=== PATIENT | female | born 1940 | race Caucasian/White ===

== ENCOUNTER 2017-07-22 21:46 | Emergency (ER) | payer MEDICARE ==
[~2017-07-22] VITALS: Ht 157.5 cm; Wt 61.2 kg
[~2017-07-22 21:46] MED LIST: CRESTOR20 MG PO; CYMBALTA60 MG PO; DIAZEPAM10 MG PO; PANTOPRAZOLE SO40 MG PO; SYNTHROID50 MCG PO; ULTRAM50 MG PO
--- OUTSIDE RECORDS SUMMARY | 2017-07-22 21:50 | XMS REPORT | Clinical Summary ---
Author Author [facility] Organization [facility] Address Unknown Phone Unavailable Care Team Providers Care Employment Specialist Name Role Phone AgentTomás MD PCP Allergies No Known Allergies Current Medications Prescription Sig. Disp. Refills Start End Date Status Date naproxen sodium (ALEVE) Take 220 mg by mouth Active 220 MG tablet every 12 (twelve) hours as needed for mild pain. rosuvastatin (CRESTOR) 20 Take 20 mg by mouth Active MG tablet daily. cyclobenzaprine Take 5 mg by mouth Active (FLEXERIL) 5 MG tablet nightly. DULoxetine (CYMBALTA) 60 Take 60 mg by mouth Active MG capsule daily. diazepam (VALIUM) 10 MG Take 10 mg by mouth every Active tablet 6 (six) hours as needed for anxiety. acetaminophen (TYLENOL) Take 500 mg by mouth Active 500 MG tablet every 6 (six) hours as needed for mild pain. calcium carbonate Take 600 mg by mouth 2 Active (OS-NAEL) 600 mg (1,500 (two) times a day with mg) tablet meals. pantoprazole (PROTONIX) Take 40 mg by mouth Active 40 MG EC tablet daily. levothyroxine (SYNTHROID, Take 50 mcg by mouth Active LEVOTHROID) 50 MCG tablet every morning. traMADol (ULTRAM) 50 mg Take 50 mg by mouth every Active tablet 6 (six) hours as needed for moderate pain. buPROPion SR (WELLBUTRIN Take 150 mg by mouth 2 Active SR) 150 MG 12 hr tablet (two) times a day. 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 Anxiety and depression 04/29/2016 Acquired hypothyroidism 04/29/2016 Encounters Date Type Specialty Care Team Description 08/18/2016 Telephone Neurology Mitch Dove MD 07/29/2016 Office Visit Neurology Gefof Buck MD Cognitive disorder (Primary Dx); Idiopathic peripheral neuropathy; Gait disorder; Anxiety and depression 07/24/2016 Telephone Neurology Sowmya Becker MA after 07/21/2016 Family History Medical History Relation Name Comments Parkinsonism Mother Relation Name Status Comments Mother Social History Tobacco Use Types Packs/Day Years Used Date Current Every Day Smoker Cigarettes 40 Smokeless Tobacco: Never Used Comments: 4 cigarrettes a day Alcohol Use Drinks/Week oz/Week Comments Yes occasional Sex Assigned at Date Recorded Not on file Last Filed Vital Signs Not on file Plan of Treatment Health Maintenance Due Date Last Done Comments MAMMOGRAM 1992 ZOSTER VACCINE 2002 PNEUMOCOCCAL 2007 POLYSACCHARIDE VACCINE AGE 65 AND OVER PNEUMOCOCCAL-13 2007 INFLUENZA VACCINE 12/30/2016 Results Not on fileafter 07/21/2016 Insurance Payer Benefit Subscriber ID Type Phone Address Plan / Group AETNA AETNA xxxxxxxxxx HMO HMO,POS,EP O, MC/EC MEDICARE MEDICARE xxxxxxxxxx Medicare [place], [place] PART A AND B
--- NOTE | 2017-07-22 22:54 | Diagnostic Imaging Report ---
HIPS BILAT TWO VWS(+/- PELVIS) HISTORY: Pain COMPARISON: None FINDINGS: Bones: No displaced fracture. Osseous alignment is within normal limits. Joints: Degenerative changes noted at the lower lumbar spine and symphysis pubis. Soft tissues: The soft tissues appear unremarkable for surgical clips at the lower pelvis just above the symphysis pubis. Vascular calcifications are present. IMPRESSION: No acute radiographic abnormality. Signed by: Dr. Latrell Srivastava M.D. on 07/22/2017 10:51 PM
--- NOTE | 2017-07-22 23:10 | Diagnostic Imaging Report ---
EXAMINATION: Head CT without contrast. HISTORY:Status post fall. COMPARISON:CT brain from 07/31/2016. TECHNIQUE: Multidetector axial images were obtained from the foramen magnum to the vertex without contrast. The images were reconstructed using brain and bone algorithms. Thin section brain images were reformatted into coronal and sagittal planes. Intravenous contrast: None IMAGE QUALITY: Acceptable. FINDINGS: Skull/scalp: No abnormality. Parenchyma: Unchanged old vascular insult in right striato-capsular region, anterior limb of left internal capsule and old lacunar infarct in left putamen. Nonspecific bilateral frontoparietal white matter hypodensities are likely related to small vessel ischemic changes. No acute hemorrhage, mass or acute major vascular territorial infarct. Arteries: Atherosclerotic calcification in bilateral carotid siphon and V4 segment of the vertebral arteries. Dural sinuses: No abnormal density suggestive of thrombosis. Ventricles: Moderate compensated dilatation due to volume loss. No hydrocephalus. Extra-axial spaces: No abnormal density. Brain volume: Advanced generalized cerebral volume loss. Craniocervical junction: No mass, Chiari malformation, or basilar invagination. Sella: No mass. Paranasal/mastoid sinuses: Imaged portions unremarkable. IMPRESSION: 1. No acute posttraumatic intracranial abnormality. 2. No change since CT head from 07/31/2016. Chronic findings: 1. 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 2. Mild supratentorial white matter microvascular ischemic changes. 3. Generalized age-related cerebral volume loss. Signed by: Dr. Christine Osei M.D. on 07/22/2017 11:07 PM
--- NOTE | 2017-07-22 23:35 | Diagnostic Imaging Report ---
History: Status post fall. Comparison studies: CT cervical spine from 07/31/2016. Technique: Axial images were obtained through the cervical region.. Coronal and sagittal images reconstructed from the axial data.. Intravenous contrast: None Findings: Fractures: None. Soft tissue injuries: None. Atlantoaxial articulation: Intact. Alignment: Reversal of normal cervical lordosis is either positional or due to muscle spasm. No scoliosis. Cervicomedullary junction: No abnormalities. The foramen magnum is patent. Soft tissues: No abnormalities. Vertebrae: Expected postoperative changes from prior anterior cervical spine fusion from level C3-C7. Suboptimal evaluation at this level due to metallic streak artifacts. The metallic hardware and screws are intact. Unchanged asymmetric increase in distance between the anterior margin of C5 vertebral body and the fixation plate that remains 5.4 mm in maximum anteroposterior dimension may represent hardware loosening in appropriate clinical setting. Unchanged intervertebral fixation device with multilevel partial osseous fusion, with decrease in osseous fusion at level C4-C5 with 4 mm, grade 1 anterolisthesis. No fractures, infection or neoplasm. Degenerative changes: C2-C3: Posterior disc osteophyte complex without significant canal stenosis. C4-C5: Bilateral mild foraminal stenosis due to facet and uncovertebral arthrosis. C5-C6: Mild right and moderate left foraminal stenosis due to facet arthrosis. C6-C7: Bilateral mild foraminal stenosis due to uncovertebral arthrosis IMPRESSION: 1. No acute cervical spine abnormalities.Reversal of normal cervical lordosis may be positional or due to muscle spasm. 2. Ligament, spinal cord and or vascular abnormalities cannot be excluded on the basis of this examination. 3. Expected postoperative changes from prior anterior cervical spine fusion from level C3-C7, with suboptimal evaluation at this level due to metallic streak artifacts. 4. Unchanged grade 1 anterolisthesis at C4-C5 and asymmetric increase in distance between the anterior margin of C5 and metallic fixation plate which may represent hardware loosening or failure in appropriate clinical setting. Signed by: Dr. Christine Osei M.D. on 07/22/2017 11:31 PM
--- NOTE | 2017-07-23 00:02 | Diagnostic Imaging Report ---
SHOULDER RIGHT COMPLETE HISTORY: Pain status post fall COMPARISON: None FINDINGS: Bones: No displaced fracture. Patient is status post cervical spine anterior fusion Osseous alignment is within normal limits. Joints: Degenerative changes of the right AC joint.. Narrowing of the acromiohumeral space suggestive of rotator cuff tear. Soft tissues: The soft tissues appear unremarkable. IMPRESSION: No acute radiographic abnormality. Chronic changes as above Signed by: Dr. Latrell Srviastava M.D. on 07/22/2017 11:59 PM
== END 2017-07-23 00:07 | disposition home or self-care (01) ==
LOC: ER 21:46
DX: S00.03XA Contusion of scalp, initial encounter (principal); W17.89XA Other fall from one level to another, initial encounter; Y92.008 Other place in unspecified non-institutional (private) residence as the place of occurrence of the external cause
CPT/HCPCS: 70450; 72125; 73521; 99283

== ENCOUNTER 2017-11-10 16:07 | Emergency (ER) | payer MEDICARE, OTHER ==
[~2017-11-10] VITALS: Ht 157.5 cm; Wt 61.2 kg
--- OUTSIDE RECORDS SUMMARY | 2017-11-10 16:10 | XMS REPORT ---
Author Author [facility] Address Unknown Phone Unavailable Care Team Providers Care Research Administrator Name Role Phone SUZETTE WEI Unavailable Unavailable Problems This patient has no known problems. Allergies, Adverse Reactions, Alerts This patient has no known allergies or adverse reactions. Medications This patient has no known medications. Results Test Description Test Time Test Comments Text Results Atomic Results Result Comments CT CERVICAL SPINE WO [place] [address] Patient Name: RONY KAUR MR #: [id number] : 1940 Age/Sex: 77/F Req #: [id number] [facility] Physician: Ordered by: SUZETTE WEI MD Report #: [id number] Location: ER Room/Bed: Procedure: [id number] CT/CT CERVICAL SPINE WO Exam Date: 07/22/17 Exam Time: 2226 REPORT STATUS: Signed History: Status post fall. Comparison studies: CT cervical spine from 07/31/2016. Technique: Axial images were obtained through the cervical region.. Coronal and sagittal images reconstructed from the axial data.. Intravenous contrast: None Findings: Fractures: None. Soft tissue injuries: None. Atlantoaxial articulation: Intact. Alignment: Reversal of normal cervical lordosis is either positional or due to muscle spasm. No scoliosis. Cervicomedullary junction: No abnormalities. The foramen magnum is patent. Soft tissues: No abnormalities. Vertebrae: Expected postoperative changes from prior anterior cervical spine fusion from level C3-C7. Suboptimal evaluation at this level due to metallic streak artifacts. The metallic hardware and screws are intact. Unchanged asymmetric increase in distance between the anterior margin of C5 vertebral body and the fixation plate that remains 5.4 mm in maximum anteroposterior dimension may represent hardware loosening in appropriate clinical setting. Unchanged intervertebral fixation device with multilevel partial osseous fusion, with decrease in osseous fusion at level C4-C5 with 4 mm, grade 1 anterolisthesis. No fractures, infection or neoplasm. Degenerative changes: C2-C3: Posterior disc osteophyte complex without significant canal stenosis. C4-C5: Bilateral mild foraminal stenosis due to facet and uncovertebral arthrosis. C5-C6: Mild right and moderate left foraminal stenosis due to facet arthrosis. C6-C7: Bilateral mild foraminal stenosis due to uncovertebral arthrosis IMPRESSION: 1. No acute cervical spine abnormalities.Reversal of normal cervical lordosis may be positional or due to muscle spasm. 2. Ligament , spinal cord and or vascular abnormalities cannot be excluded on the basis of this examination. 3. Expected postoperative changes from prior anterior cervical spine fusion from level C3-C7, with suboptimal evaluation at this level due to metallic streak artifacts. 4. Unchanged grade 1 anterolisthesis at C4-C5 and asymmetric increase in distance between the anterior margin of C5 and metallic fixation plate which may represent hardware loosening or failure in appropriate clinical setting. Signed by: Dr. Christine Osei M.D. on 07/22/2017 11:31 PM Dictated By: CHRISTINE OSEI MD 30 Transcribed By: ADITYA on 07/22/17 2331 COPY TO: SUZETTE WEI MD [facility] BILAT TWO VWS(+/- PELVIS) [place] [address] Patient Name: RONY KAUR MR #: [id number] : 1940 Age/Sex: 77/F Req #: [id number] Physician: Ordered by: SUZETTE WEI MD Report #: [id number] Location: ER Room/Bed: Procedure: [id number] DX/HIPS BILAT TWO VWS(+/- PELVIS) Exam Date: Exam Time: REPORT STATUS: Signed HIPS BILAT TWO VWS(+/ - PELVIS) HISTORY: Pain COMPARISON: None FINDINGS: Bones : No displaced fracture. Osseous alignment is within normal limits. Joints: Degenerative changes noted at the lower lumbar spine and symphysis pubis. Soft tissues: The soft tissues appear unremarkable for surgical clips at the lower pelvis just above the symphysis pubis. Vascular calcifications are present. IMPRESSION: No acute radiographic abnormality. Signed by: Dr. Latrell Srivastava M.D. on 07/22/2017 10:51 PM Dictated By: LATRELL KWON MD 50 Transcribed By: ADITYA on 07/22/172250 COPY TO: SUZETTE WEI MD CT BRAIN [place] [address] Patient Name: RONY KAUR MR #: [id number] : 1940 Age/Sex: 77/F Req # : [id number] [facility] Physician: Ordered by: SUZETTE WEI MD Report #: [id number] Location: ER Room/Bed: Procedure: [id number] CT/CT BRAIN WO Exam Date: 07/22/17 Exam Time: 2226 REPORT STATUS: Signed EXAMINATION: Head CT without contrast. HISTORY:Status post fall. COMPARISON:CT brain from 07/31/2016. TECHNIQUE : Multidetector axial images were obtained from the foramen magnum to the vertex without contrast. The images were reconstructed using brain and bone algorithms. Thin section brain images were reformatted into coronal and sagittal planes. Intravenous contrast: None IMAGE QUALITY: Acceptable. FINDINGS: Skull/scalp: No abnormality. Parenchyma: Unchanged old vascular insult in right striato-capsular region, anterior limb of left internal capsule and old lacunar infarct in left putamen. Nonspecific bilateral frontoparietal white matter hypodensities are likely related to small vessel ischemic changes. No acute hemorrhage, mass or acute major vascular territorial infarct. Arteries: Atherosclerotic calcification in bilateral carotid siphon and V4 segment of the vertebral arteries. Dural sinuses: No abnormal density suggestive of thrombosis. Ventricles: Moderate compensated dilatation due to volume loss. No hydrocephalus. Extra-axial spaces: No abnormal density. Brain volume: Advanced generalized cerebral volume loss. Craniocervical junction: No mass, Chiari malformation, or basilar invagination. Sella: No mass. Paranasal/mastoid sinuses: Imaged portions unremarkable. IMPRESSION: 1. No acute posttraumatic intracranial abnormality. 2. No change since CT head from 07/31/2016. Chronic findings: 1. 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 2. Mild supratentorial white matter microvascular ischemic changes. 3. Generalized age-related cerebral volume loss. Signed by: Dr. Christine Osei M.D. on 07/22/2017 11:07 PM Dictated By: CHRISTINE OSEI MD 06 Transcribed By: ADITYA on 07/22/172306 COPY TO: SUZETTE WEI MD [place] [address] Patient Name: RONY KAUR MR #: [id number] : 1940 Age/Sex: 77/F Req #: [id number] [facility] Physician: Ordered by: SUZETTE WEI MD Report #: [id number] Location: ER Room/Bed: Procedure: [id number] DX/SHOULDER RIGHT COMPLETE Exam Date: 07/22/17 Exam Time: 2234 REPORT STATUS: Signed SHOULDER RIGHT COMPLETE HISTORY: Pain status post fall COMPARISON: None FINDINGS: Bones: No displaced fracture. Patient is status post cervical spine anterior fusion Osseous alignment is within normal limits. Joints: Degenerative changes of the right AC joint.. Narrowing of the acromiohumeral space suggestive of rotator cuff tear. Soft tissues: The soft tissues appear unremarkable. IMPRESSION: No acute radiographic abnormality. Chronic changes as above Signed by: Dr. Latrell Srivastava M.D. on 07/22/2017 11 :59 PM Dictated By: LATRELL KWON MD Transcribed By: ADITYA on 07/22/176 COPY TO: SUZETTE WEI MD
--- OUTSIDE RECORDS SUMMARY | 2017-11-10 16:10 | XMS REPORT | Clinical Summary ---
Author Author [facility] Organization [facility] Address Unknown Phone Unavailable Care Team Providers Care Gore Stitcher Name Role Phone Agent, Tomás LOWE PCP Allergies No Known Allergies Current Medications [...] Anxiety and depression 04/29/2016 Acquired hypothyroidism 04/29/2016 Family History Medical History Relation Name Comments [...] Health Maintenance Due Date Last Done Comments BREAST CANCER SCREENING 1992 COLON CANCER SCREENING 1992 SHINGRIX VACCINE (#1) 1992 ZOSTER VACCINE 2002 PNEUMOCOCCAL 2007 POLYSACCHARIDE VACCINE AGE 65 AND OVER PNEUMOCOCCAL-13 2007 INFLUENZA VACCINE 12/30/2017 Results Not on fileafter 11/09/2016 Insurance Payer Benefit Subscriber ID Type Phone Address Plan / Group AETNA AETNA xxxxxxxxxx HMO HMO,POS,EP O, MC/EC MEDICARE MEDICARE xxxxxxxxxx Medicare [place], [place] PART A AND B
--- OUTSIDE RECORDS SUMMARY | 2017-11-10 16:10 | XMS REPORT | Continuity of Care Document ---
Author Author [facility] Organization [facility] Address [address] [place] [address] Phone Unavailable Care Team Providers Care 1St Pressman Name Role Phone NO, PCP PCP Unavailable Insurance Providers Guarantor Geno Kaur Address [address] [place] [address] Email [email or web address] Payer [facility]na [facility] Care Policy Number [id number] Subscriber's Name RjGeno Sheth Relationship 18 Self / Same As Patient Group Number [id number] Group Name RETIRED Effective Date 12 Payer Medicare A & B Policy Number [id number] Subscriber's Name Jovanna Kaurcatie Sheth Relationship 18 Self / Same As Patient Group Number [id number] Group Name RETIRED Effective Date 09 Advance Directives Directive Response Recorded Date/Time Does the patient have an advance directive? Yes 07/31/16 10:29pm If yes, is advance directive on file with [facility]? No 08/16/14 12:37pm If not on file with [facility] will patient provide a copy? Yes 07/31/16 10:29pm Do you have a Directive to Physician? No 07/22/17 9:44pm Do you have a Medical Power of Nanotechnology Engineering Technologist? No 07/22/17 9:44pm Do you have an out of hospital Do Not Resuscitate Order? No 07/22/17 9:44pm Do you have any special needs we should be aware of? No 07/22/17 9:44pm Do you have a support person here with you today? Yes 07/22/17 9:44pm Did patient receive Notice of Privacy Practices? Yes 07/22/17 9:44pm Did patient receive patient rights and responsibilities? Yes 07/22/17 9:44pm Problems No problem information available. Medications Current Home Medications Medication Dose Units Route Directions Days Qty Instructions Start Date Diazepam 10 Mg Tablet 10 Mg Oral Bedtime Duloxetine Hcl (Cymbalta) 60 Mg Capsule.dr 60 Mg Oral Daily Levothyroxine Sodium (Synthroid) 50 Mcg Tab 50 Mcg Oral Daily Pantoprazole Sodium (Protonix) 40 Mg Tablet. 40 Mg Oral Daily Rosuvastatin Calcium (Crestor) 20 Mg Tablet 20 Mg Oral Bedtime Tramadol Hcl (Ultram) 50 Mg Tablet 50 Mg Oral As Needed Social History Smoking Status Start Date Stop Date Current every day smoker Hospital Discharge Instructions No hospital discharge instruction information available. Plan of Care Discharge Date 07/23/17 12:07am Disposition HOME, SELF-CARE Condition at Discharge Stable Instructions/Education Provided Contusion Fall Prevention Forms Provided Work/School Excuse Prescriptions See Medication Section Additional Instructions/Education FOLLOW UP WITH YOUR DOCTOR USE YOUR WALKER WITH AMBULATION Functional Status No functional status information available. Allergies, Adverse Reactions, Alerts No known allergies. Immunizations No immunization information available. Vital Signs Acute Vital Signs Vital Response Date/Time Height 5 ft 2 in 07/22/2017 9:59pm Weight 135 lb 07/22/2017 9:59pm Body Mass Index 24.7 kg/m^2 07/22/2017 9:59pm Results No relevant diagnostic test, laboratory data and/or discharge summary information available. Procedures Procedure Status Date Provider(s) Computed tomography of brain without radiopaque contrast Active 07/22/17 SUZETTE WEI MD Computed tomography of cervical spine without contrast Active 07/22/17 SUZETTE WEI MD Encounters Encounter Location Arrival/Admit Date Discharge/Depart Date Attending Provider Departed Emergency Room [facility] 07/22/17 9:46pm 12:07am SUZETTE WEI MD Departed Emergency Room [facility] 11/29/16 6:31pm 8:33pm SUZETTE WEI MD
--- NOTE | 2017-11-10 17:28 | Diagnostic Imaging Report ---
PROCEDURE: A single AP view of the chest. COMPARISON: Patients [facility], DX, CHEST 2 VIEWS - [facility], 11/07/2015, 12:14. INDICATIONS: FALL FINDINGS: Lines/tubes: None. Lungs: Lungs are well-inflated. Mild bilateral basal atelectatic changes. Pleura: Questionable small left pleural effusion versus pleural thickening. Stable eventration of the right hemidiaphragm. Heart and mediastinum: Cardiac silhouette is unremarkable. Tortuous thoracic aorta. Pulmonary vasculature is normal. Bones: Stable healed right-sided rib fractures. No acute displaced fracture or dislocation in this limited portable AP view IMPRESSION: 1. No acute, displaced fracture or dislocation in this limited portable AP view. 2. Questionable small left pleural effusion versus pleural thickening. Mild bibasilar atelectatic changes. Helio Azul M.D. Dictated by: Helio Azul M.D. on 11/10/2017 at 17:31 Electronically approved by: Helio Azul M.D. on 11/10/2017 at 17:31
[2017-11-10 18:23] LABS: PARTIAL THROMBOPLASTIN TIME 28.3 seconds (23.8-35.5); PROTHROMBIN TIME 12.4 seconds (11.9-14.5)
[2017-11-10 18:24] LABS: BASOPHILS % 0.1 % (0.0-1.0); EOSINOPHILS # (AUTO) 6.4 (0.0-0.4); EOSINOPHILS % 0.5 % (0.0-6.0); HEMATOCRIT 40.3 % (34.2-44.1); HEMOGLOBIN 13.4 g/dL (12.0-16.0); LYMPHOCYTES % 2.6 % (18.0-39.1); MEAN CORPUSCULAR HEMOGLOBIN 28.8 pg (28-32); MEAN CORPUSCULAR HGB CONC 33.3 g/dL (31-35); MEAN CORPUSCULAR VOLUME 86.7 fL (81-99); MONOCYTES # (AUTO) 6.4 (0.2-0.8); MONOCYTES % 0.5 % (4.4-11.3); NEUTROPHILS # (AUTO) 48.4 (2.1-6.9); NEUTROPHILS % 3.4 % (38.7-80.0); PLATELET COUNT 179 x10e3/uL (140-360); RED BLOOD COUNT 4.65 x10e6/uL (3.6-5.1); RED CELL DISTRIBUTION WIDTH 14.4 % (11.7-14.4)
[2017-11-10 18:25] LABS: BASOPHILS # (AUTO) 0.9 (0.0-0.1)
[2017-11-10 18:30] LABS: BILIRUBIN,URINE NEGATIVE (NEGATIVE); CLARITY,URINE CLEAR (CLEAR); COLOR,URINE YELLOW (YELLOW); KETONES,URINE NEGATIVE (NEGATIVE); LEUKOCYTE ESTERASE ,URINE NEGATIVE (NEGATIVE); NITRITE,URINE NEGATIVE (NEGATIVE); PROTEIN,URINE DIPSTICK NEGATIVE (NEGATIVE); URINE UROBILINOGEN 0.2 mg/dL (0.2 - 1)
[2017-11-10 18:43] LABS: BACTERIA,URINE FEW /HPF
[2017-11-10 18:44] LABS: ANION GAP 12.1 mmol/L (8-16); BLOOD UREA NITROGEN 11 mg/dL (7-26); BUN/CREATININE RATIO 12 (6-25); CALCIUM 9.6 mg/dL (8.4-10.2); CARBON DIOXIDE 29 mmol/L (22-29); CHLORIDE 102 mmol/L (98-107); CREATININE, SERUM 0.94 mg/dL (0.57-1.11); EST GLOMERULAR FILTRATION RATE 58 ML/MIN (60-); GLUCOSE 90 mg/dL (74-118); POTASSIUM 4.1 mmol/L (3.5-5.1); SODIUM 139 mmol/L (136-145)
[2017-11-10 18:45] LABS: ALANINE AMINOTRANSFERASE 26 IU/L (0-55); ALBUMIN 3.8 g/dL (3.5-5.0); ALBUMIN/GLOBULIN RATIO 1.3 (0.8-2.0); ALKALINE PHOSPHATASE 81 IU/L (40-150); CREATINE KINASE 79 IU/L (29-168)
--- NOTE | 2017-11-10 21:01 | Diagnostic Imaging Report ---
History:Fall Comparison studies:None Technique: Axial images were obtained from the skull base to the vertex. Coronal and sagittal images reconstructed from the axial data. Intravenous contrast: None Findings: Scalp/skull: No abnormalities. Extra-axial spaces: No masses. No fluid collections. Brain sulci: Moderately prominent. Ventricles: Moderate compensatory dilatation. No hydrocephalus. Parenchyma: Ill defined confluent old lacunar insult is centered in the right striatocapsular region (lateral putamen and lateral head of the caudate). Hypodensities in the supratentorial white matter are small vessel ischemic changes. No masses, hemorrhage, acute or chronic cortical vascular insults. Sellar/suprasellar region: No abnormalities. Craniocervical junction: Patent foramen magnum. No Chiari one malformation. Incidental findings: Atherosclerotic calcifications in the carotid siphons and distal vertebral arteries. Impression: No acute abnormalities. Chronic findings: Moderate generalized volume loss. Moderate supratentorial white matter small vessel ischemic changes. Focal right striatocapsular lacunar insult. Preliminary report provided by Dr. Gray Signed by: Dr. Jose Perez M.D. on 11/10/2017 8:58 PM
--- NOTE | 2017-11-10 21:11 | Diagnostic Imaging Report ---
History: Fall Comparison studies: None Technique: Axial images were obtained through the cervical region.. Coronal and sagittal images reconstructed from the axial data.. Intravenous contrast: None Findings: Airway: Patent. Fractures: None. Soft tissues: No gross abnormalities. Atlantoaxial articulation: Mildly degenerated. Alignment: Reversal of the usual lordosis is centered at C5-6. 3 mm retrolisthesis of C5 on C6. No scoliosis. Cervicomedullary junction: No abnormalities. The foramen magnum is patent. Vertebrae: Patient status post bilateral laminectomies at C4 and anterior cervical fusion from C3 to C7. The prevertebral plate and paired screws are in place. The intervening disc spaces and the facet joints are partially fused. Empty screw tracts are noted at C7 level superiorly adjacent to the C7 vertebral body screws. No infection or neoplasm. Degenerative changes: Mild spinal canal stenosis at C2-3 due to a central partially calcified disc protrusion. Foraminal stenosis is mild right at C3-4, left at C4-5, moderate left, mild right at C5-6 due to uncovertebral arthrosis. IMPRESSION: 1. No acute abnormalities. 2. Cannot adequately evaluate for ligament, spinal cord and or vascular abnormalities on this exam. 3. Patient status post anterior cervical fusion from C3 to C6 and decompressive laminectomies at C4. 4. Degenerative changes as described. 5. Preliminary report provided by Dr. Gray on 11/10/2017 at 1810 hours. Signed by: Dr. Jose Perez M.D. on 11/10/2017 9:08 PM
[2017-11-10 22:16] VITALS: BP 122/76
== END 2017-11-10 22:23 | disposition home or self-care (01) ==
LOC: ER 16:07
DX: S16.1XXA Strain of muscle, fascia and tendon at neck level, initial encounter (principal); M54.2 Cervicalgia; R51 Headache; W01.0XXA Fall on same level from slipping, tripping and stumbling without subsequent striking against object, initial encounter; Y92.009 Unspecified place in unspecified non-institutional (private) residence as the place of occurrence of the external cause; Z91.81 History of falling; I10 Essential (primary) hypertension
CPT/HCPCS: 36415; 70450; 71045; 72125; 80053; 81001; 82550; 82553; 84484; 85025; 85610; 85730; 93005; 99283